=== PATIENT | female | born 1960 | race Caucasian/White ===

== ENCOUNTER → 2018-03-17 | Outpatient (CLI) | payer BC ==
[~2018-03-17] MED LIST: ADVANCED PROBI625 MG PO; Central Vite F1 EACH PO; D3 DOTS2000 UNIT PO; JINTELI 1 MG-51 EACH PO; LEVSOD88 PO; Nexium40 MG PO; PYRI100 PO
== END ==
LOC: LAB SHORT 20:38 → LAB 20:38
PROVIDERS: Nurse Practitioner Family
DX: Z01.419 Encounter for gynecological examination (general) (routine) without abnormal findings (principal)
CPT/HCPCS: G0145

== ENCOUNTER 2019-02-08 04:20 | Emergency (ER) | payer BC ==
[~2019-02-08] VITALS: Ht 165.1 cm; Wt 54.4 kg
[2019-02-08 04:42] LABS: Source, Urine Clean Catch
[2019-02-08 04:43] LABS: Bilirubin, Urine Neg (Neg); Blood, Urine 2+ (Neg); Glucose Qualitative, Urine Neg (Neg); Ketones, Urine Neg (Neg); Leukocyte Esterase, Urine 1+ (Neg); Nitrite, Urine Neg (Neg); Protein, Urine Neg (Neg); Specific Gravity, Urine 1.005 (1.003-1.022); Urobilinogen, Urine NORM (Normal)
[2019-02-08 04:53] LABS: Appearance, Urine Clear (Clear); Bacteria Few /hpf; Color, Urine Yellow (P-Yellow); Red Blood Cells, Urine 0-2 /hpf (0-2); Squamous Epithelial Cells Not Seen /hpf (Few)
[2019-02-08 05:09] LABS: BASOPHILS ABSOLUTE AUTO 0.03 K/mm3 (0.00-0.23); BASOPHILS PERCENT AUTO 1 % (0-2); EOSINOPHILS PERCENT AUTO 3 % (0-6); Hematocrit 41.8 % (33.0-51.0); Hemoglobin 13.4 g/dL (11.5-16.0); IMMATURE GRAN PERCENT AUTO 0 % (0-1); LYMPHOCYTES ABSOLUTE AUTO 0.85 K/mm3 (0.84-5.20); LYMPHOCYTES PERCENT AUTO 23 % (21-46); MONOCYTES ABSOLUTE AUTO 0.37 K/mm3 (0.16-1.47); MONOCYTES PERCENT AUTO 10 % (4-13); Mean Corpuscular HGB 30.1 pg (26.0-34.0); Mean Corpuscular HGB Conc 32.1 g/dL (31.5-36.5); Mean Corpuscular Volume 94 fL (80-100); Mean Platelet Volume 9.8 fL (9.1-12.4); NEUTROPHILS ABSOLUTE AUTO 2.42 K/mm3 (1.96-9.15); NEUTROPHILS PERCENT AUTO 64 % (41-73); Platelet Count 208 K/mm3 (150-400); RDW Coefficient Variation 12.6 % (11.7-14.2); RDW Standard Deviation 43.6 fL (35.1-46.3); Red Blood Cell Count 4.45 M/mm3 (3.80-5.20); White Blood Cell Count 3.77 K/mm3 (4.00-11.30)
[2019-02-08 05:25] LABS: Alanine Aminotransfer (ALT/SGP 20 U/L (12-78); Albumin/Globulin Ratio 1.1 (0.8-1.8); Alk Phos 77 U/L (50-136); Anion Gap 8 mmol/L (6-16); Aspartate Aminotrans (AST/SGOT 17 U/L (12-37); Bilirubin, Total 1.1 mg/dL (0.1-1.0); Blood Urea Nitrogen 8 mg/dL (8-24); Bun/Creatinine Ratio 9.4 (12.0-20.0); CO2, Blood 27 mmol/L (21-32); Calcium, Blood 8.9 mg/dL (8.5-10.1); Chloride, Blood 105 mmol/L (98-108); Creatinine, Blood 0.85 mg/dL (0.40-1.00); Globulin, Blood 3.7 g/dL (2.2-4.0); Glomerular Filtration Rate >60 (60-); Glucose, Blood 85 mg/dL (70-99); Potassium, Blood 3.7 mmol/L (3.5-5.5); Sodium, Blood 140 mmol/L (136-145); Total Protein, Blood 7.7 g/dL (6.4-8.2)
== END 2019-02-08 07:45 | disposition home or self-care (01) ==
LOC: ER 04:20
PROVIDERS: Emergency Medicine
DX: R10.84 Generalized abdominal pain (principal); Z91.013 Allergy to seafood; Z79.899 Other long term (current) drug therapy
CPT/HCPCS: 36415; 74176; 80053; 81001; 83690; 85025; 87086; 99284-25

== ENCOUNTER 2019-10-03 07:44 | Day surgery (SDC) | payer BC ==
[~2019-10-03] VITALS: Ht 165.1 cm; Wt 53.5 kg
[~2019-10-03 07:44] MED LIST changes: +B Complex-Foli1 EACH; +CALCIUM 600 +1 EA11 PO; +CLIMARA1 EACH; +Gas-X125 M1; +PROG100; +Pepcid20 MG; +TUMS500 MG
--- NOTE | 2019-10-03 08:27 | NUR ---
10/03/19 0827 Karla Rodriguez 1ST I.V. ATTEMPT IN RIGHT HAND 2ND I.V. ATTEMPT IN RIGHT HAND
--- NOTE | 2019-10-03 10:04 | NUR ---
10/03/19 1004 Marion Emerson AT THE END OF THE UPPER ENDOSCOPY PT DESATTED TO 85% O2 ON 3L 02. CHIN LIFT, JAW THRUST DONE, 02 UP TO 5LNC. ONCE PT AWAKENED, 02 BACK TO 95% ON ROOM AIR. PT AWAKE AND TALKING, DENIES PAIN.
--- NOTE | 2019-10-03 10:50 | NUR ---
10/03/19 1050 Sherly Holman LATE ENTRY---RECEIVED REPORT IN STEPDOWN FROM KERRIE LUZ. PATIENT HAD EPISODE OF DESATURATION AT THE END OF THE EGD AND WAS REPORTED TO HAVE BEEN COUGHING AND HAD A DROP IN SATS. PATIENT RECOVERED WITH SLIGHT JAW THRUST, SUCTIONING AND INCREASE O2. DURING THE ENTIRE RECOVERY PERIOD IN STEP DOWN THE PATIENT WAS STABLE ON ROOM AIR AND HAD O2 SATS OF 99-100%. NO COUGHING AT ALL. PATIENT AT FIRST WAS SITTING UP AND DRINKING JUICE. THEN TRANSITIONED TO CHANGING INTO HER CLOTHES AND SITTING IN CHAIR WHILE SHE CONTINUED BEING MONITORED. PATIENT EXPRESSED TO ME THAT SHE FELT FINE AND WAS JUST READY TO GO AND EAT BREAKFAST. OK TO DISCHARGE PER DR VAN
== END 2019-10-03 10:40 | disposition home or self-care (01) ==
LOC: ORSCSDS 07:44
PROVIDERS: Internal Medicine Gastroenterology
PROC: 0DB68ZX Excision of Stomach, Via Natural or Artificial Opening Endoscopic, Diagnostic (ICD-10-PCS; principal; 2019-10-03 09:00)
PROC: 0DBC8ZX Excision of Ileocecal Valve, Via Natural or Artificial Opening Endoscopic, Diagnostic (ICD-10-PCS; principal; 2019-10-03 09:00)
DX: Z12.11 Encounter for screening for malignant neoplasm of colon (principal); Z86.010 Personal history of colon polyps; Z80.0 Family history of malignant neoplasm of digestive organs; K21.0 Gastro-esophageal reflux disease with esophagitis; Z79.899 Other long term (current) drug therapy
CPT/HCPCS: 88305; J0461; J2001; J2405; J2704; J7120

== ENCOUNTER 2020-05-09 08:42 | Day surgery (SDC) | payer BC ==
[~2020-05-09] VITALS: Ht 165.1 cm; Wt 55.0 kg
[~2020-05-09 08:42] MED LIST changes: +PANT40 PO
== END 2020-05-09 10:36 | disposition home or self-care (01) ==
LOC: ORSCSDS 08:42
PROVIDERS: Internal Medicine Gastroenterology
PROC: 0DB58ZX Excision of Esophagus, Via Natural or Artificial Opening Endoscopic, Diagnostic (ICD-10-PCS; principal; 2020-05-09 09:45)
PROC: 0DB68ZX Excision of Stomach, Via Natural or Artificial Opening Endoscopic, Diagnostic (ICD-10-PCS; principal; 2020-05-09 09:45)
DX: K21.9 Gastro-esophageal reflux disease without esophagitis (principal); K21.0 Gastro-esophageal reflux disease with esophagitis; K31.7 Polyp of stomach and duodenum; E11.9 Type 2 diabetes mellitus without complications; J44.9 Chronic obstructive pulmonary disease, unspecified; G47.33 Obstructive sleep apnea (adult) (pediatric); I25.10 Atherosclerotic heart disease of native coronary artery without angina pectoris; Z79.899 Other long term (current) drug therapy
CPT/HCPCS: 88305; J2704; J7120

== ENCOUNTER → 2020-11-28 | Outpatient (CLI) | payer BC ==
[2020-11-28 19:30] LABS: BASOPHILS ABSOLUTE AUTO 0.06 K/mm3 (0.00-0.23); BASOPHILS PERCENT AUTO 1 % (0-2); EOSINOPHILS ABSOLUTE AUTO 0.18 K/mm3 (0.00-0.68); EOSINOPHILS PERCENT AUTO 4 % (0-6); Hematocrit 41.5 % (33.0-51.0); Hemoglobin 12.9 g/dL (11.5-16.0); IMMATURE GRAN PERCENT AUTO 0 % (0-1); LYMPHOCYTES ABSOLUTE AUTO 1.06 K/mm3 (0.84-5.20); LYMPHOCYTES PERCENT AUTO 23 % (21-46); MONOCYTES ABSOLUTE AUTO 0.48 K/mm3 (0.16-1.47); MONOCYTES PERCENT AUTO 10 % (4-13); Mean Corpuscular HGB 28.9 pg (26.0-34.0); Mean Corpuscular HGB Conc 31.1 g/dL (31.5-36.5); Mean Corpuscular Volume 93 fL (80-100); Mean Platelet Volume 10.4 fL (9.1-12.4); NEUTROPHILS PERCENT AUTO 62 % (41-73); Platelet Count 246 K/mm3 (150-400); RDW Coefficient Variation 12.6 % (11.7-14.2); RDW Standard Deviation 43.5 fL (35.1-46.3); Red Blood Cell Count 4.46 M/mm3 (3.80-5.20); White Blood Cell Count 4.68 K/mm3 (4.00-11.30)
== END ==
LOC: LAB SHORT 17:45
PROVIDERS: Obstetrics & Gynecology
DX: Z01.818 Encounter for other preprocedural examination (principal)
CPT/HCPCS: 85025

== ENCOUNTER 2020-12-04 11:20 | Day surgery (SDC) | payer BC ==
[~2020-12-04] VITALS: Ht 165.1 cm; Wt 55.1 kg
--- NOTE | 2020-12-04 13:29 | NUR ---
12/04/20 1329 Leidy Lizarraga DEFICIT 150ML NACL 0 URINE OUTPUT
== END 2020-12-04 14:10 | disposition home or self-care (01) ==
LOC: ORSCSDS 11:20
PROVIDERS: Obstetrics & Gynecology
PROC: 0UDB8ZX Extraction of Endometrium, Via Natural or Artificial Opening Endoscopic, Diagnostic (ICD-10-PCS; principal; 2020-12-04 12:30)
PROC: 0UB98ZX Excision of Uterus, Via Natural or Artificial Opening Endoscopic, Diagnostic (ICD-10-PCS; principal; 2020-12-04 12:30)
DX: N95.0 Postmenopausal bleeding (principal); N84.0 Polyp of corpus uteri; E03.9 Hypothyroidism, unspecified; Z79.899 Other long term (current) drug therapy
CPT/HCPCS: J1100; J1885; J2250; J2405; J2704; J3010; J7120